=== PATIENT | male | born 1990 | race African-American/Black ===

== ENCOUNTER 2020-01-15 06:40 | Emergency (ER) | payer MEDICAID, OTHER ==
[~2020-01-15] VITALS: Ht 172.7 cm; Wt 72.6 kg
[2020-01-15] MEDS ORDERED: LIDOCAINE 2%HCL (LOCAL ANESTH.) INJ 20ML MDV ID ONE (07:30)
[2020-01-15] MEDS ORDERED: NEOMYCIN-BACITRACIN-POLYM UNITDOSE PKG TOP OINT TOP ONE (07:30)
[2020-01-15] MEDS ORDERED: TETANUS-DIPTH-ACEL PERTUSSIS 0.5ML SYR Tdap IM ONE (07:30)
[2020-01-15 07:57] VITALS: BP 132/76
== END 2020-01-15 08:56 | disposition home or self-care (01) ==
LOC: ER 06:40
DX: S51.812A Laceration without foreign body of left forearm, initial encounter (principal); S51.012A Laceration without foreign body of left elbow, initial encounter; S00.03XA Contusion of scalp, initial encounter; F14.10 Cocaine abuse, uncomplicated; F17.210 Nicotine dependence, cigarettes, uncomplicated; W18.39XA Other fall on same level, initial encounter; Y99.8 Other external cause status; Y93.89 Activity, other specified; Y92.89 Other specified places as the place of occurrence of the external cause
CPT/HCPCS: 13121; 13122; 70450; 72125; 73090; 90471; 90715

== ENCOUNTER 2020-04-03 11:44 | Emergency (ER) | payer MEDICAID, OTHER, SELFPAY ==
[~2020-04-03] VITALS: Ht 172.7 cm; Wt 68.0 kg
[2020-04-03 12:20] VITALS: BP 133/92
[2020-04-03] MEDS ORDERED: ASPirin-EC 81 mg tab PO ONE (12:45)
[2020-04-03 12:49] LABS: Basophils # (auto) 0.1 10 ^3/uL (0-0.2); Basophils % (auto) 0.6 % (0.0-2.0); Eosinophils # (auto) 0.3 10 ^3/uL (0-0.8); Eosinophils % (auto) 2.9 % (0.0-7.0); Hematocrit 46.1 % (41.0-53.0); Hemoglobin 15.4 g/dL (13.5-17.5); Lymphocytes % (auto) 21.8 % (10.0-50.0); Mean Corpuscular Hemoglobin 27.3 pg (28.0-32.0); Mean Corpuscular Hgb Conc. 33.4 g/dL (32.0-36.0); Mean Corpuscular Volume 81.7 fL (80.0-100.0); Monocytes # (auto) 1.3 10 ^3/uL (0-1.3); Monocytes % (auto) 14.8 % (0.0-12.0); Neutrophils # (auto) 5.3 10 ^3/uL (1.6-8.6); Neutrophils % (auto) 59.9 % (37.0-80.0); Nucleated Red Blood Cells % 0.5 %; Platelet Count (auto) 299 10^3/uL (140-450); Red Blood Cells 5.64 10^6/uL (4.5-5.90); Red Cell Distribution Width 12.8 % (11.8-14.3)
[2020-04-03 13:08] LABS: Albumin 3.5 g/dL (3.4-5.0); Anion Gap 7 (5-15); Blood Urea Nitrogen 10 mg/dL (7-18); Calcium 9.5 mg/dL (8.5-10.1); Carbon Dioxide 26 mmol/L (21-32); Chloride 106 mmol/L (98-107); Glucose 103 mg/dL (74-106); Potassium 3.8 mmol/L (3.5-5.1); Sodium 139 mmol/L (136-145)
[2020-04-03 13:15] LABS: Alanine Aminotransferase 40 U/L (16-61); Alkaline Phosphatase 140 U/L (45-117); Aspartate Aminotransferase 29 U/L (15-37); BUN/Creatinine Ratio 13.5; Bilirubin, Total 1.5 mg/dL (0.2-1.0); GFR African American 163 mL/min; GFR Non-African American 135 mL/min
== END 2020-04-03 14:44 | disposition left against medical advice (07) ==
LOC: EDBD 11:44 → ER 11:44
DX: I31.9 Disease of pericardium, unspecified (principal); R07.89 Other chest pain; F17.210 Nicotine dependence, cigarettes, uncomplicated; Z20.828 Contact with and (suspected) exposure to other viral communicable diseases
CPT/HCPCS: 36415; 71045; 80053; 84484; 85025; 87040; 87070; 87804; 87880; 93005; 99285; C9803; J7030; U0003

== ENCOUNTER 2025-07-21 15:05 | Emergency (ER) | payer SELFPAY ==
[~2025-07-21] VITALS: Ht 172.7 cm; Wt 82.6 kg
[2025-07-21 15:06] VITALS: BP 109/66; PULSE 69; RESP 18; O2SAT 99
[2025-07-21 16:01] LABS: Chloride 106 mmol/L (98-107); Potassium 4.3 mmol/L (3.5-5.1); Sodium 141 mmol/L (136-145)
[2025-07-21 16:02] LABS: Anion Gap 10 (5-15); Carbon Dioxide 25 mmol/L (20-31)
[2025-07-21 16:03] LABS: Calcium 9.0 mg/dL (8.7-10.4)
[2025-07-21 16:07] LABS: BUN/Creatinine Ratio 8.6 (10.0-20.0); Glucose 80 mg/dL (74-106)
--- NOTE | 2025-07-21 16:08 | DVH ---
EXAM: CT HEAD WITHOUT CONTRAST INDICATION: syncope TECHNIQUE: CT images of the head were obtained without administration of IV contrast. CT scans at [facility] use dose modulation, iterative reconstruction, and/or weight based dosing when appropriate to reduce radiation dose to as low as reasonably achievable. COMPARISON: None FINDINGS: PARENCHYMA: No acute hemorrhage. There is no mass effect, midline shift, or herniation. There is pres ervation of the allen white differentiation. VENTRICLES: No hydrocephalus. EXTRA-AXIAL SPACES: No extra-axial fluid collections. OTHER: The bony structures are intact. Visualized portions of the paranasal sinuses and mastoid air cells are clear. IMPRESSION: 1. No CT evidence of an acute intracranial abnormality.
[2025-07-21 16:10] LABS: Blood Urea Nitrogen 8 mg/dL (9-23)
--- NOTE | 2025-07-21 16:21 | DVH ---
EXAM: XY CHEST PORTABLE HISTORY: syncope COMPARISON: None TECHNIQUE: Portable upright AP view of the chest was performed. FINDINGS: Lung volumes are mildly low. There is mild interstitial prominence centrally and in the lung bases. No pneumothorax or consolidative infiltrates. The heart is borderline enlarged. No fractures are iden tified about the bony thorax. IMPRESSION: Mild interstitial prominence may be due to low lung volumes, reactive airways disease, or mild CHF. The lungs are otherwise clear.
--- NOTE | 2025-07-22 00:25 | ECG ---
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
== END 2025-07-21 18:27 | disposition left against medical advice (07) ==
LOC: ER 15:05
DX: R55 Syncope and collapse (principal); Z53.21 Procedure and treatment not carried out due to patient leaving prior to being seen by health care provider
CPT/HCPCS: 36415; 70450; 71045; 80048; 84484; 93005